=== PATIENT | male | born 1995 | race Caucasian/White ===

== ENCOUNTER 2016-09-25 10:22 | Emergency (ER) | payer SELFPAY ==
[2016-09-25] MEDS ORDERED: ACETAMINOPHEN 325 MG TABLET PO ONE (10:41)
--- NOTE | 2016-09-25 10:41 | ER Document Report ---
ED Medical Screen (RME) - General Stated Complaint: ABDOMINAL PAIN Notes: abdominal pain cramping pain. Last bm was this AM and was normal onset: last night left side along rib cage. denies recent surgery, travel admits to nausea with pain at its worst h/o kidney stones I have greeted and performed a rapid initial assessment of this patient. A comprehensive ED assessment and evaluation of the patient, analysis of test results and completion of the medical decision making process will be conducted by additional ED providers. TRAVEL OUTSIDE OF THE [place] IN LAST 30 DAYS: No - Related Data Allergies/Adverse Reactions: anesthesia Allergy (Uncoded 03/10/15 11:13)
[2016-09-25 11:18] LABS: ABSOLUTE BASOPHILS # (AUTO) 0.1 10^3/uL (0.0-0.2); ABSOLUTE EOSINOPHILS # (AUTO) 0.1 10^3/uL (0.0-0.6); ABSOLUTE LYMPHOCYTES (AUTO) 1.7 10^3/uL (0.5-4.7); ABSOLUTE MONOCYTES (AUTO) 1.3 10^3/uL (0.1-1.4); ABSOLUTE NEUT (AUTO) 10.7 10^3/uL (1.7-8.2); BASOPHILS % (AUTO) 0.4 % (0-2); EOSINOPHILS % (AUTO) 0.8 % (0-6); HEMATOCRIT 46.5 % (37.9-51.0); HGB HCT DIFFERENCE 1.5; MEAN CORPUSCULAR HEMOGLOBIN 30.2 pg (27.0-33.4); MEAN CORPUSCULAR HGB CONC 34.4 g/dL (32.0-36.0); MEAN CORPUSCULAR VOLUME 88 fl (80-97); MONOCYTES % (AUTO) 9.4 % (3-13); RED BLOOD COUNT 5.29 10^6/uL (4.35-5.55); RED CELL DISTRIBUTION WIDTH 12.9 % (11.5-14.0); SEGMENTED NEUTROPHILS % (AUTO) 77.4 % (42-78); WHITE BLOOD COUNT 13.9 10^3/uL (4.0-10.5)
--- NOTE | 2016-09-25 11:23 | ER Document Report ---
ED General - General Chief Complaint: Abdominal Pain Stated Complaint: ABDOMINAL PAIN Time seen by provider: 11:10 Mode of Arrival: Ambulatory Information source: Patient Notes: 21-year-old male with subjective fever and chills beginning yesterday evening. He reports occasional nonproductive cough and nausea but denies vomiting or diarrhea. She is body aches involving arms legs chest abdomen and back and denies any local or discrete discomfort in any one spot. He reports some sore throat this morning but denies earache headache or blurry vision this morning. Patient in case she is concerning might have the flu or pneumonia. 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 Physical Exam: General: Alert, appears well. HEENT: Normocephalic. Atraumatic. PERRLA. Extraocular movements intact. Tympanic membranes canals clear Oropharynx clear. Neck: Supple. Non-tender. JVD no nuchal rigidity Respiratory: No respiratory distress. Clear and equal breath sounds bilaterally. No discrete tenderness to palpation Cardiovascular: Regular rate and rhythm. Abdominal: Normal Inspection. Soft, non-tender. No distension. Normal Bowel Sounds. Back: Non-tender. No deformity or step off. Extremities: Moves all four extremities. Upper extremities: Normal inspection. Non-tender. Normal color. Normal ROM. Normal temperature. Lower extremities: Normal inspection. Non-tender. No edema. Normal color. Normal ROM. Normal temperature. Neurological: Speech clear mentation normal lites without difficulty Psychological: Normal affect. Normal Mood. Skin: Warm. Dry. Normal color. TRAVEL OUTSIDE OF THE [place] IN LAST 30 DAYS: No - Related Data Allergies/Adverse Reactions: anesthesia Allergy (Uncoded 09/25/16 10:38) Past Medical History - Social History Smoking Status: Current Every Day Smoker Frequency of alcohol use: Rare Drug Abuse: Marijuana Family History: CAD Patient has suicidal ideation: No Patient has homicidal ideation: No Renal/ Medical History: Reports: Hx Kidney Stones. Denies: Hx Peritoneal Dialysis Past Surgical History: Reports: Hx Genitourinary Surgery - REVISED CIRCUMCISION Review of Systems - Review of Systems Constitutional: See HPI EENT: See HPI Cardiovascular: See HPI Respiratory: See HPI Gastrointestinal: See HPI Genitourinary: denies: Burning, Dysuria, Hematuria Musculoskeletal: Back pain Hematologic/Lymphatic: denies: Swollen glands Neurological/Psychological: denies: Weakness, Numbness Physical Exam - Vital signs Vitals: Temp Pulse Resp BP Pulse Ox 99.0 F 105 H 20 134/85 H 97 09/25/16 10:39 09/25/16 10:39 09/25/16 10:39 09/25/16 10:39 09/25/16 10:39 Course - Re-evaluation Re-evalutation: 09/25/16 12:03 Patient is a presentation consistent with viral syndrome. He'll be given a prescription for Phenergan as needed for nausea and instructed to take Tylenol or Motrin for other symptoms. - Vital Signs Vital signs: Temp Pulse Resp BP Pulse Ox 99.0 F 105 H 20 134/85 H 97 09/25/16 10:39 09/25/16 10:39 09/25/16 10:39 09/25/16 10:39 09/25/16 10:39 - Laboratory Result Diagrams: 09/25/16 10:50 09/25/16 10:50 Laboratory results interpreted by me: 09/25/16 09/25/16 10:50 10:50 WBC 13.9 H Lymphocytes % 12.0 L Absolute Neutrophils 10.7 H ALT 20 L 09/25/16 12:03 Influenza nasal washing negative - Diagnostic Test Radiology reviewed: Reports reviewed Discharge - Discharge Clinical Impression: Viral syndrome Condition: Stable Disposition: HOME, SELF-CARE Instructions: Viral Syndrome ([facility]) Prescriptions: Promethazine HCl [Phenergan 25 mg Tablet] 1 tab PO Q6H PRN #10 tablet PRN Reason: Forms: Return to Work Referrals: MARCELINA ACUÑA MD [ACTIVE STAFF] - Follow up as needed
[2016-09-25 11:36] LABS: ALANINE AMINOTRANSFERASE 20 U/L (21-72); ALKALINE PHOSPHATASE 77 U/L (38-126); ANION GAP 13 (5-19); ASPARTATE AMINO TRANSFERASE 21 U/L (17-59); BILIRUBIN,TOTAL 1.1 mg/dL (0.2-1.3); BLOOD UREA NITROGEN 14 mg/dL (7-20); CALCIUM 10.1 mg/dL (8.4-10.2); CARBON DIOXIDE 26 mmol/L (22-30); CHLORIDE 101 mmol/L (98-107); CREATININE RESULT 0.85 mg/dL (0.52-1.25); GLUCOSE 94 mg/dL (75-110); LIPASE 39.5 U/L (23-300); POTASSIUM 4.4 mmol/L (3.6-5.0); SODIUM 139.8 mmol/L (137-145); TOTAL PROTEIN 7.6 g/dL (6.3-8.2)
[2016-09-25] MEDS ORDERED: IBUPROFEN 400 MG TABLET PO ONE (12:02)
[2016-09-25 12:25] VITALS: BP 121/76
== END 2016-09-25 12:24 | disposition home or self-care (01) ==
LOC: ER 10:22
DX: R10.9 Unspecified abdominal pain (principal); B34.9 Viral infection, unspecified; R11.0 Nausea; R05 Cough; F17.200 Nicotine dependence, unspecified, uncomplicated; M25.562 Pain in left knee; M25.561 Pain in right knee; Z87.442 Personal history of urinary calculi
CPT/HCPCS: 99284; 36415; 83690; 85025; 80053; 87804; 71101; J3490

== ENCOUNTER 2016-10-07 13:28 | Emergency (ER) | payer SELFPAY ==
--- NOTE | 2016-10-07 14:06 | ER Document Report ---
ED Medical Screen (RME) - General Stated Complaint: RIGHT SIDE BODY AND FACE NUMBNESS Mode of Arrival: Ambulatory Information source: Patient Notes: Patient reports three-day history of right upper muscle spasm that causes numbness to right upper extremity and right hip area. Patient states these episodes have been intermittent but are increasing in frequency. Patient denies any injury. Patient is right-hand dominant. hx: None I have greeted and performed a rapid initial assessment of this patient. A comprehensive ED assessment and evaluation of the patient, analysis of test results and completion of the medical decision making process will be conducted by additional ED providers. TRAVEL OUTSIDE OF THE [place] IN LAST 30 DAYS: No - Related Data Allergies/Adverse Reactions: anesthesia Allergy (Uncoded 10/07/16 14:03) Past Medical History Renal/ Medical History: Reports: Hx Kidney Stones. Denies: Hx Peritoneal Dialysis Past Surgical History: Reports: Hx Genitourinary Surgery - REVISED CIRCUMCISION Physical Exam - Vital signs Vitals: Temp Pulse Resp BP Pulse Ox 97.7 F 85 18 119/76 98 10/07/16 13:35 10/07/16 13:35 10/07/16 13:35 10/07/16 13:35 10/07/16 13:35 - Neurological Cognition: Normal Alpine Coma Scale Eye Opening: Spontaneous Lucinda Coma Scale Verbal: Oriented [place] Coma Scale Motor: Abnormal Flexion Lucinda Coma Scale Total: 12 Course - Vital Signs Vital signs: Temp Pulse Resp BP Pulse Ox 97.7 F 85 18 119/76 98 10/07/16 13:35 10/07/16 13:35 10/07/16 13:35 10/07/16 13:35 10/07/16 13:35
[2016-10-07 14:49] LABS: ALANINE AMINOTRANSFERASE 19 U/L (21-72); ALBUMIN 3.9 g/dL (3.5-5.0); ALKALINE PHOSPHATASE 64 U/L (38-126); ANION GAP 8 (5-19); ASPARTATE AMINO TRANSFERASE 14 U/L (17-59); BILIRUBIN,TOTAL 0.4 mg/dL (0.2-1.3); BLOOD UREA NITROGEN 17 mg/dL (7-20); CALCIUM 9.8 mg/dL (8.4-10.2); CARBON DIOXIDE 28 mmol/L (22-30); CHLORIDE 103 mmol/L (98-107); CREATININE RESULT 0.88 mg/dL (0.52-1.25); GLUCOSE 75 mg/dL (75-110); POTASSIUM 4.6 mmol/L (3.6-5.0); SODIUM 139.2 mmol/L (137-145); TOTAL PROTEIN 6.3 g/dL (6.3-8.2)
[2016-10-07 15:02] LABS: ABSOLUTE BASOPHILS # (AUTO) 0.1 10^3/uL (0.0-0.2); ABSOLUTE EOSINOPHILS # (AUTO) 0.4 10^3/uL (0.0-0.6); ABSOLUTE LYMPHOCYTES (AUTO) 2.5 10^3/uL (0.5-4.7); ABSOLUTE MONOCYTES (AUTO) 1.3 10^3/uL (0.1-1.4); ABSOLUTE NEUT (AUTO) 8.9 10^3/uL (1.7-8.2); BASOPHILS % (AUTO) 0.6 % (0-2); HEMATOCRIT 40.9 % (37.9-51.0); HEMOGLOBIN 14.4 g/dL (13.5-17.0); HGB HCT DIFFERENCE 2.3; LYMPHOCYTES % (AUTO) 19.1 % (13-45); MEAN CORPUSCULAR HEMOGLOBIN 30.7 pg (27.0-33.4); MEAN CORPUSCULAR HGB CONC 35.2 g/dL (32.0-36.0); MEAN CORPUSCULAR VOLUME 87 fl (80-97); MONOCYTES % (AUTO) 9.7 % (3-13); RED BLOOD COUNT 4.69 10^6/uL (4.35-5.55); RED CELL DISTRIBUTION WIDTH 12.7 % (11.5-14.0); SEGMENTED NEUTROPHILS % (AUTO) 67.6 % (42-78); WHITE BLOOD COUNT 13.2 10^3/uL (4.0-10.5)
--- NOTE | 2016-10-07 19:27 | ER Document Report ---
ED General - General Chief Complaint: Numbness of Arm Stated Complaint: RIGHT SIDE BODY AND FACE NUMBNESS Mode of Arrival: Ambulatory Notes: Patient is a 21-year-old male without past medical history who presents with 2 weeks of intermittent spasming of his right upper extremity. States that intermittently over the last 2 weeks of having anywhere from 5 minutes to several hours of severe spasming with associated numbness and tingling in his right upper extremity. Describes the pain as a severe, constant, throbbing pain tenderness present. States that the symptoms come on spontaneously and resolve spontaneously. He denies any history of similar symptoms in the past prior to the last several weeks. He has not seen his primary care doctor regarding today's concerns. At the time my assessment he denies any complaints and states that the episode he is having earlier today has now resolved. No family history of neurodegenerative disorders or demyelinating conditions. Denies any drug or alcohol use. Denies any medication use. TRAVEL OUTSIDE OF THE [place] IN LAST 30 DAYS: No - Related Data Allergies/Adverse Reactions: anesthesia Allergy (Uncoded 10/07/16 14:03) Past Medical History - General Information source: Patient - Social History Smoking Status: Current Every Day Smoker Chew tobacco use (# tins/day): Yes Frequency of alcohol use: None Drug Abuse: None Lives with: Family Family History: CAD Patient has suicidal ideation: No Patient has homicidal ideation: No Renal/ Medical History: Reports: Hx Kidney Stones. Denies: Hx Peritoneal Dialysis Past Surgical History: Reports: Hx Genitourinary Surgery - REVISED CIRCUMCISION Review of Systems - Review of Systems Notes: Constitutional: Negative for fever. HENT: Negative for sore throat. Eyes: Negative for visual changes. Cardiovascular: Negative for chest pain. Respiratory: Negative for shortness of breath. Gastrointestinal: Negative for abdominal pain, vomiting or diarrhea. Genitourinary: Negative for dysuria. Musculoskeletal: Positive for intermittent right upper extremity pain Skin: Negative for rash. Neurological: Negative for headaches, weakness or numbness. 10 point ROS negative except as marked above and in HPI. Physical Exam - Vital signs Vitals: Temp Pulse Resp BP Pulse Ox 97.7 F 85 18 119/76 98 10/07/16 13:35 10/07/16 13:35 10/07/16 13:35 10/07/16 13:35 10/07/16 13:35 Interpretation: Normal Notes: PHYSICAL EXAMINATION: GENERAL: Well-appearing, well-nourished and in no acute distress. HEAD: Atraumatic, normocephalic. EYES: Pupils equal round and reactive to light, extraocular movements intact, sclera anicteric, conjunctiva are normal. ENT: nares patent, oropharynx clear without exudates. Moist mucous membranes. NECK: Normal range of motion, supple without lymphadenopathy LUNGS: Breath sounds clear to auscultation bilaterally and equal. No wheezes rales or rhonchi. HEART: Regular rate and rhythm without murmurs ABDOMEN: Soft, nontender, normoactive bowel sounds. No guarding, no rebound. No masses appreciated. EXTREMITIES: Normal range of motion, no pitting or edema. No cyanosis. NEUROLOGICAL: Face symmetric. Tongue protrudes midline. Extraocular motions intact. Pupils are 2 mm and equally reactive. Normal speech, normal gait. 5 out of 5 strength in both the distal and proximal upper and lower extremities bilaterally. Sensation is grossly intact throughout. Finger to nose testing normal. Pronator drift normal. PSYCH: Normal mood, normal affect. SKIN: Warm, Dry, normal turgor, no rashes or lesions noted. Course - Re-evaluation Re-evalutation: 10/07/16 19:23 Patient presents with intermittent right upper extremity spasms with associated loss of strength and sensation that then spontaneously resolves. Notes that he has had intermittent blurring of his vision over the last 3 weeks. On exam at this time he has no focal neurologic deficits. A stroke screen is negative. He does not have any history of trauma, neck manipulation, or direct injury to the neck to suggest a cervical artery dissection. And again his neurologic exam is normal making this diagnosis unlikely. Likewise a do not suspect an acute TIA or CVA given that patient has recurrence of these episodes almost daily and they do last nor between 5 minutes and several hours. Patient does not have any pain with applying a downward force to an extended neck toward the right. Differential at this time includes muscle spasms particularly given that patient states that his entire arm tenses as well as the shoulder when these episodes occur. Cervical 6-7 root compression could also give pain radiating into the shoulder and arm. I've also discussed the patient the possibility of new onset multiple sclerosis given his intermittent symptoms as well as his apparent intermittent blurring of vision. However, at this time based on his normal neurologic exam I do not believe an emergent MRI is indicated. I have asked and follow-up with neurology at his earliest ability for consideration of further diagnostic testing and imaging.At this time will discharge with return precautions and follow-up recommendations. Verbal discharge instructions given a the bedside and opportunity for questions given. Medication warnings reviewed. Patient is in agreement with this plan and has verbalized understanding of return precautions and the need for primary care follow-up in the next 24-72 hours. - Vital Signs Vital signs: Temp Pulse Resp BP Pulse Ox 98.6 F 66 16 129/83 H 100 10/07/16 19:46 10/07/16 19:46 10/07/16 19:46 10/07/16 19:46 10/07/16 19:46 - Laboratory Result Diagrams: 10/07/16 14:20 10/07/16 14:20 Laboratory results interpreted by me: 10/07/16 10/07/16 14:20 14:20 WBC 13.2 H Absolute Neutrophils 8.9 H AST 14 L ALT 19 L Discharge - Discharge Clinical Impression: Right upper limb pain Condition: Good Disposition: HOME, SELF-CARE Additional Instructions: Please follow-up with the neurologist in the next several weeks particularly if your symptoms do not completely resolve. Return to the emergency room immediately if you have of these episodes that does not resolve spontaneously, have more frequent episodes, pass out, or have any other symptoms that are concerning to you. Prescriptions: Cyclobenzaprine HCl [Flexeril 10 mg Tablet] 10 mg PO TIDP PRN #15 tab PRN Reason: Forms: Return to Work Referrals: GLORIA EL MD [ACTIVE STAFF] - Follow up as needed
[2016-10-07 19:48] VITALS: BP 129/83
== END 2016-10-07 19:48 | disposition home or self-care (01) ==
LOC: ER 13:28
DX: M79.601 Pain in right arm (principal); R20.0 Anesthesia of skin; R20.2 Paresthesia of skin; R25.2 Cramp and spasm; R53.1 Weakness; H53.8 Other visual disturbances; F17.200 Nicotine dependence, unspecified, uncomplicated; Z88.4 Allergy status to anesthetic agent
CPT/HCPCS: 36415; 80053; 85025; 99284

== ENCOUNTER 2019-02-16 06:41 | Emergency (ER) | payer SELFPAY ==
[2019-02-16 07:14] VITALS: BP 150/101
--- NOTE | 2019-02-16 07:29 | ER Document Report ---
ED Neuro Symptoms/Deficit - General Chief Complaint: Arm Pain Stated Complaint: EAR PAIN Time Seen by Provider: 02/16/19 06:51 TRAVEL OUTSIDE OF THE [place] IN LAST 30 DAYS: No - HPI Notes: Patient is a 23 yo male that presents to the emergency department for chief complaint of left arm numbness. Patient reports left arm numbness that started yesterday around 2 PM. He was sitting at rest and doing no extraneous activity. He did not work yesterday. Patient states that he has a difficult time feeling his entire hand through just proximal to his elbow. He states it does not feel like the watch she is wearing on his left side is on although he can see it. He denies significant change in the hand sensation but states the numbness occasionally does radiate more proximally to his shoulder. Currently he is not having numbness in the shoulder. He denies speech difficulty, confusion, weakness. Patient does report history of TIA 2 years ago and states he was admitted at [facility]. He believes he was started on blood pressure medication which he never took and told to stop smoking which he did not do. Patient has not followed with any primary care or neurology since that admission. He is also complaining of 3 days of sinus congestion and right ear fullness. Past Medical History: TIA, HTN Past Surgical History: Negative Social History: Daily tobacco. Occasional alcohol. Daily marijuana. Family History: Reviewed and noncontributory for presenting illness Allergies: Reviewed, see documented allergy list. REVIEW OF SYSTEMS: CONSTITUTIONAL : No fever No chills No diaphoresis No recent illness EENT: No vision changes No congestion No sore throat CARDIOVASCULAR: No chest pain No palpitations RESPIRATORY: No shortness of breath No cough No difficulty breathing GASTROINTESTINAL: No abdominal pain No nausea No vomiting No diarrhea GENITOURINARY: No dysuria No hematuria No difficulty urinating MUSCULOSKELETAL: No back pain No leg pain No arm pain SKIN: No rashes No lesions LYMPHATIC: No swollen, enlarged glands. NEUROLOGICAL: No lightheadedness No headache No weakness paresthesias PSYCHIATRIC: No anxiety No depression PHYSICAL EXAMINATION: Vital signs reviewed, nursing noted reviewed. GENERAL: Somnolent, well-nourished and in no acute distress. HEAD: Atraumatic, normocephalic. EYES: Eyes appear normal, extraocular movements intact, sclera anicteric, conjunctiva are injected ENT: nares patent, oropharynx clear without exudates. Moist mucous membranes. NECK: Normal range of motion, supple without lymphadenopathy LUNGS: Breath sounds clear to auscultation bilaterally and equal. No wheezes rales or rhonchi. HEART: Regular rate and rhythm without murmurs ABDOMEN: Soft, nontender, normoactive bowel sounds. No rebound, guarding, or rigidity. No masses appreciated. EXTREMITIES: Nontender, good range of motion, no pitting or edema. NEUROLOGICAL: Subjective paresthesias to palpation of left hand and circumferentially to left forearm and elbow. Normal sensation just proximal to the left elbow. Moves all extremities spontaneously Motor intact on exam. NIH=1 (paresthesias) PSYCH: Normal mood, normal affect. SKIN: Warm, Dry, normal turgor, no rashes or lesions noted on exposed skin - Related Data Allergies/Adverse Reactions: anesthesia Allergy (Uncoded 10/07/16 14:03) Past Medical History - Social History Smoking Status: Current Every Day Smoker Family History: CAD Renal/ Medical History: Reports: Hx Kidney Stones. Denies: Hx Peritoneal Dialysis Past Surgical History: Reports: Hx Genitourinary Surgery - REVISED CIRCUMCISION Physical Exam - Vital signs Vitals: Temp Pulse Resp BP Pulse Ox 98.2 F 98 18 140/88 H 96 02/16/19 06:47 02/16/19 06:47 02/16/19 06:47 02/16/19 06:47 02/16/19 06:47 Course - Re-evaluation Re-evalutation: 02/16/19 07:54 Vitals reviewed. Nursing notes reviewed. Patient is reporting paresthesias to his left upper extremity. His paresthesias are located just proximal to the elbow moving distally. He has no focal motor deficits. He is awake and oriented. The onset of symptoms was yesterday and he is outside the window for TPA. His NIH is also low which excludes him from TPA criteria. Patient reports history of TIA 2 years ago and has uncontrolled hypertension and continues to smoke therefore stoke workup was initiated. I have asked for permission to obtain records from [facility] from his previous admission to review any neurology consultation and imaging. Patient has refused to permit me to obtain prior records. He states he just wants to see if something is going on today with his arm. I did explain that I was looking to see what his prior images looked like to compare and what the recommendations were at discharge however he has continued to refuse to sign consent to obtain records. Chart review in this computer shows visits for similar paresthesias that were not believed to be TIA or stroke. 02/16/19 09:05 Patient reevaluated. His left arm numbness is unchanged. CT brain shows no acute intracranial mass, bleeding or stroke. Patient has an unremarkable chest x-ray. His lab work is unremarkable as well. Patient has no acute electrolyte derangements. At this point given his risk factors and reported history of TIA with new stroke symptoms I did recommend admission to the hospital for MRI brain and further neurologic monitoring. Patient was ordered aspirin as well. Patient has declined admission and would like to leave AGAINST MEDICAL ADVICE. He has capacity to make medical decisions. He understands the risks of leaving AGAINST MEDICAL ADVICE. Patient will be provided out patient resources for neurology follow-up and primary care follow-up. He was told to stop smoking. He was told he needs to see a primary care doctor to get his blood pressure treated. He was told he can return at any point in time for further assessment. Patient did leave the emergency room AGAINST MEDICAL ADVICE. 02/16/19 09:06 Chest X-Ray 02/16/19 07:03 IMPRESSION: Clear lungs. Head CT 02/16/19 07:03 IMPRESSION: No acute intracranial findings. Laboratory 02/16/19 02/16/19 02/16/19 07:40 07:40 07:40 WBC 12.5 H RBC 5.12 Hgb 15.4 Hct 44.5 MCV 87 MCH 30.1 MCHC 34.7 RDW 12.9 Plt Count 277 Seg Neutrophils % 71.4 Lymphocytes % 14.5 Monocytes % 8.3 Eosinophils % 5.4 Basophils % 0.4 Absolute Neutrophils 8.9 H Absolute Lymphocytes 1.8 Absolute Monocytes 1.0 Absolute Eosinophils 0.7 H Absolute Basophils 0.0 PT 12.3 INR 0.92 APTT 32.6 Sodium 139.1 Potassium 5.0 Chloride 108 H Carbon Dioxide 24 Anion Gap 7 BUN 17 Creatinine 0.77 Est GFR ( Amer) > 60 Est GFR (Non-Af Amer) > 60 Glucose 100 Calcium 9.3 Total Bilirubin 0.6 Direct Bilirubin 0.3 Neonat Total Bilirubin Not Reportable Neonat Direct Bilirubin Not Reportable Neonat Indirect Bili Not Reportable AST 20 ALT 21 Alkaline Phosphatase 66 Troponin I Total Protein 6.6 Albumin 4.1 02/16/19 07:40 WBC RBC Hgb Hct MCV MCH MCHC RDW Plt Count Seg Neutrophils % Lymphocytes % Monocytes % Eosinophils % Basophils % Absolute Neutrophils Absolute Lymphocytes Absolute Monocytes Absolute Eosinophils Absolute Basophils PT INR APTT Sodium Potassium Chloride Carbon Dioxide Anion Gap BUN Creatinine Est GFR ( Amer) Est GFR (Non-Af Amer) Glucose Calcium Total Bilirubin Direct Bilirubin Neonat Total Bilirubin Neonat Direct Bilirubin Neonat Indirect Bili AST ALT Alkaline Phosphatase Troponin I < 0.012 Total Protein Albumin - Vital Signs Vital signs: Temp Pulse Resp BP Pulse Ox 98.2 F 98 18 140/88 H 96 02/16/19 06:47 02/16/19 06:47 02/16/19 06:47 02/16/19 06:47 02/16/19 06:47 - Laboratory Result Diagrams: 02/16/19 07:40 02/16/19 07:40 - EKG Interpretation by Me Additional EKG results interpreted by me: 02/16/19 07:54 Interpreted by myself [id number]: Normal sinus rhythm, rate 92, normal axis, no ectopy, no STEMI ED NIH Stroke Scale - NIH Stroke Scale *: 1. NIH scale should be completed with appropriate accompanying assessment tools. *: 2. The NIH should reflect what the patient is capable of doing and should not be coached by the clinician. 1a. Level of Consciousness: 0=Alert;keenly responsive -: 1=Drowsy -: 2=Obtunded -: 3=Coma/unresponsive or reflex to noxious stimuli. 1a. Responses: 0 1b. Orientation Questions: a. What month is it? -: b. How old are you? -: 0=Answers both questions correctly. -: 1=Answers one question correctly or patient is intubated or has orotracheal trauma. -: 2=Answers neither question correctly. 1b. Responses: 0 1c. Response to commands: a. Open and close eyes? -: b. Sole Scraper and release hand? -: Credit is given despite weakness. Demonstration of task is permitted. Substitute command if hands cannot be used. -: 0=Performs both tasks correctly -: 1=Performs one task correctly -: 2=Performs neither task correctly 1c. Responses: 0 2. Gaze: Establish eye contact and instruct patient to "Follow my finger" -: 0=Normal -: 1=Partial gaze palsy. Gaze is abnormal in one or both eyes, but where forced deviation or total gaze paresis is not present. -: 2=Forced deviation or total gaze paresis. 2. Responses: 0 3. Visual Driscoll: Sees fingers in all four quadrants. -: 0=No visual loss. -: 1=Partial hemianopsia. -: 2=Complete hemianopsia. -: 3=Bilateral hemianopsia (including Cortical blindness) 3. Responses: 0 4. Facial Movement: Instruct patient to: -: a. Show me your teeth -: b. Raise your eyebrows -: c. Close your eyes -: d. Smile -: 0=Normal symmetrical movement -: 1=Minor paralysis (flattened nasolabial fold, asymmetry on smiling). -: 2=Partial paralysis (total or near total paralysis of lower face). -: 3=Complete paralysis of upper and lower face 4. Responses: 0 5. Motor functions (left arm): Alternate sides and extend each arm with palms down (90 degrees if sitting or 45 degrees for supine). -: 0=No drift;limb holds for full 10 seconds. -: 1=Drift; limb holds but drifts down before full 10 seconds, but does not hit bed. -: 2=Some effort against gravity; limb cannot get to or maintain position. -: 3=No effort against gravity; limb falls. -: 4=No movement. -: UN=Amputation, joint fusion, explain in comments. 5. Responses (left arm): 0 5. Motor Functions (right arm): Alternate sides and extend each arm with palms down (90 degrees if sitting or 45 degrees for supine). -: 0=No drift;limb holds for full 10 seconds. -: 1=Drift; limb holds but drifts down before full 10 seconds, but does not hit bed. -: 2=Some effort against gravity; limb cannot get to or maintain position. -: 3=No effort against gravity; limb falls. -: 4=No movement. -: UN=Amputation, joint fusion, explain in comments. 5. Responses (right arm): 0 6. Motor Functions (left leg): With patient lying supine, alternate sides and extend each leg (30 degrees always while supine). -: 0=No drift, leg holds position for full 5 seconds -: 1=Drift; leg falls before full 5 seconds but does not hit bed. -: 2=Some effort against gravity, leg falls to bed but some effort against gravity. -: 3=No effort against gravity, leg falls to bed immediately. -: 4=No movement. -: UN=Amputation, joint fusion; explain in comments. 6. Responses (left leg): 0 6. Motor Functions (right leg): With patient lying supine, alternate sides and extend each leg (30 degrees always while supine). -: 0=No drift, leg holds position for full 5 seconds -: 1=Drift; leg falls before full 5 seconds but does not hit bed. -: 2=Some effort against gravity, leg falls to bed but some effort against gravity. -: 3=No effort against gravity, leg falls to bed immediately. -: 4=No movement. -: UN=Amputation, joint fusion; explain in comments. 6. Responses (right leg): 0 7. Limb Ataxia: With eyes open instruct patient to: -: a. "Touch your finger to your nose". -: b. "Touch your heel to your gonzales" -: 0=Absent -: 1=Present in one limb. -: 2=Present in two limbs. -: UN=Amputation or joint fusion; explain in comments. 7. Responses: 0 8. Sensory: Test sensation using pinprick or noxious stimuli. Test as many body parts as possible. -: 0=Normal;no sensory loss -: 1=Mile to moderate sensory loss (patient feels pin prick but is less sharp on affected side). -: 2=Severe or total sensory loss. 8. Responses: 1 9. Best Language: Instruct patient to: -: a. "Describe what you see in this picture." -: b. "Name the items in this picture." -: c. "Read these sentences." -: 0=No aphasia, normal -: 1=Mild to moderate aphasia. -: 2=Severe aphasia -: 3=Mute, global aphasia, no usable speech or auditory comprehension. 9. Responses: 0 10. Articulation, Dysarthia: Instruct patient to: -: "Read these words" or "Repeat these words" -: 0=Normal -: 1=Mild to moderate; patient may slur some words but can be understood without difficulty. -: 2=Severe; patients speech so slurred as to be unintelligible in the absence of dysphasia. -: UN=Intubated or other physical barrier, explain in comments. 10. Responses: 0 11. Extinction or inattention: 0=No abnormality -: 1= Visual, tactile, auditory, spatial, or personal inattention or extinction to bilateral simulation in one or the sensory modalities. -: 2=Profound shelia-inattention or shelia-inattention to more than one modality; does not recognize own hand. 11. Responses: 0 Total Score: 1 Discharge - Discharge Clinical Impression: Left arm numbness Hypertension Qualifiers: Hypertension type: unspecified Qualified Code(s): I10 - Essential (primary) hypertension Eustachian tube dysfunction Qualifiers: Laterality: right Qualified Code(s): H69.81 - Other specified disorders of Eustachian tube, right ear Condition: Stable Disposition: AGAINST MEDICAL ADVICE Instructions: Numbness or Paresthesia ([facility]) Additional Instructions: You have had constant numbness in your left arm since yesterday. With your reported history of stroke this is concerning for a new stroke. It was advised at this point that you be admitted to the hospital for further work-up including MRI of your brain. By leaving AGAINST MEDICAL ADVICE you are risking loss of life limb and permanent disability. Without risk factor modification you may have another stroke which could be more debilitating. It is important that you stop smoking. It is important that you follow in the next few days with a primary care provider to begin blood pressure medication. If you develop any new or concerning symptoms please return to the emergency room. please also return to the emergency room at any point for further stroke work-up. Dr. El is a local neurologist, I recommend following with him for further outpatient management since you do not wish to be admitted to the hospital today. You have also been provided the [facility] in the [facility] for primary care follow-up of your blood pressure. Please contact 1 of them today to establish outpatient follow-up. Forms: Elevated Blood Pressure, Smoking Cessation Education Referrals: [facility] [Provider Group] - Follow up as needed [facility] [Provider Group] - Follow up as needed GLORIA EL MD [NO LOCAL MD] - Follow up as needed
--- NOTE | 2019-02-16 07:51 | RADIOLOGY REPORT (SQ) ---
CLINICAL HISTORY: left arm numbness COMPARISON: None. TECHNIQUE: XR CHEST 1 VIEW 02/16/2019 7:03 AM CDT FINDINGS: Cardiac silhouette is normal in size. Lungs are clear without consolidation, atelectasis, mass or edema. There is no pleural effusion. There is no pneumothorax. There are no acute osseous findings. IMPRESSION: Clear lungs.
[2019-02-16 07:54] LABS: ABSOLUTE EOSINOPHILS # (AUTO) 0.7 10^3/uL (0.0-0.6); ABSOLUTE LYMPHOCYTES (AUTO) 1.8 10^3/uL (0.5-4.7); ABSOLUTE NEUT (AUTO) 8.9 10^3/uL (1.7-8.2); BASOPHILS % (AUTO) 0.4 % (0-2); EOSINOPHILS % (AUTO) 5.4 % (0-6); HEMATOCRIT 44.5 % (37.9-51.0); HEMOGLOBIN 15.4 g/dL (13.5-17.0); LYMPHOCYTES % (AUTO) 14.5 % (13-45); MEAN CORPUSCULAR HEMOGLOBIN 30.1 pg (27.0-33.4); MEAN CORPUSCULAR HGB CONC 34.7 g/dL (32.0-36.0); MEAN CORPUSCULAR VOLUME 87 fl (80-97); MONOCYTES % (AUTO) 8.3 % (3-13); PLATELET COUNT 277 10^3/uL (150-450); RED BLOOD COUNT 5.12 10^6/uL (4.35-5.55); RED CELL DISTRIBUTION WIDTH 12.9 % (11.5-14.0); SEGMENTED NEUTROPHILS % (AUTO) 71.4 % (42-78); TOTAL CELLS COUNTED % (AUTO) 100 %; WHITE BLOOD COUNT 12.5 10^3/uL (4.0-10.5)
[2019-02-16 07:59] LABS: INTERNATIONAL RATION (INR) 0.92
--- NOTE | 2019-02-16 07:59 | RADIOLOGY REPORT (SQ) ---
CLINICAL HISTORY: left arm numbness COMPARISON: None. TECHNIQUE: CT HEAD WITHOUT IV CONTRAST on 02/16/2019 7:03 AM CDT This exam was performed according to our departmental dose-optimization program, which includes automated exposure control, adjustment of the mA and/or kV according to patient size and/or use of iterative reconstruction technique. FINDINGS: There is no acute hemorrhage, mass effect or midline shift. Dale-white differentiation is preserved. There is no hydrocephalus. There is no significant volume loss for age. The calvarium is intact. Orbits and globes are unremarkable. The maxillary sinuses are opacified. There is moderate thickening of the ethmoid air cells. Mastoid air cells are clear. IMPRESSION: No acute intracranial findings.
[2019-02-16 08:00] LABS: PARTIAL THROMBOPLASTIN TIME 32.6 SEC (23.5-35.8)
[2019-02-16 08:12] LABS: PROTHROMBIN TIME 12.3 SEC (11.4-15.4)
[2019-02-16 08:13] LABS: ALANINE AMINOTRANSFERASE 21 U/L (21-72); ALBUMIN 4.1 g/dL (3.5-5.0); ALKALINE PHOSPHATASE 66 U/L (38-126); ANION GAP 7 (5-19); ASPARTATE AMINO TRANSFERASE 20 U/L (17-59); BILIRUBIN,DIRECT 0.3 mg/dL (0.0-0.4); BILIRUBIN,TOTAL 0.6 mg/dL (0.2-1.3); BLOOD UREA NITROGEN 17 mg/dL (7-20); CALCIUM 9.3 mg/dL (8.4-10.2); CARBON DIOXIDE 24 mmol/L (22-30); CHLORIDE 108 mmol/L (98-107); GLUCOSE 100 mg/dL (75-110); SODIUM 139.1 mmol/L (137-145); TOTAL PROTEIN 6.6 g/dL (6.3-8.2)
[2019-02-16] MEDS ORDERED: ASPIRIN 325 MG TABLET PO ONE (08:55)
--- NOTE | 2019-02-16 17:59 | EKG REPORT ---
SEVERITY:- NORMAL ECG - SINUS RHYTHM : Confirmed by: Armando Miller 16-Feb-2019 17:57:57
== END 2019-02-16 09:22 | disposition left against medical advice (07) ==
LOC: ER 06:41
DX: H69.81 Other specified disorders of Eustachian tube, right ear (principal); I10 Essential (primary) hypertension; R20.2 Paresthesia of skin; M79.602 Pain in left arm; Z86.73 Personal history of transient ischemic attack (TIA), and cerebral infarction without residual deficits; F17.200 Nicotine dependence, unspecified, uncomplicated
CPT/HCPCS: 36415; 70450; 71045; 80053; 84484; 85025; 85610; 85730; 93005; 93010; 99284

== ENCOUNTER 2019-02-20 08:55 | Emergency (ER) | payer SELFPAY ==
[2019-02-20] MEDS ORDERED: KETOROLAC TROMETHAMINE INJ/PF 30 MG/1 ML SDV IV ONE (09:27)
[2019-02-20] MEDS ORDERED: MORPHINE SULFATE 10 MG/ML INJ IV ONE ×2 (09:27→11:15)
--- NOTE | 2019-02-20 09:38 | ER Document Report ---
HPI - HPI Patient complains to provider of: Low back pain Time Seen by Provider: 02/20/19 09:14 Onset: Yesterday Onset/Duration: Persistent Quality of pain: Achy Pain Level: 4 Context: Patient presents complaining of right lower back pain that started yesterday. Patient denies any injury. Patient does report having some difficulty with maintaining urinary stream. Patient denies any fever or hematuria. Patient does report a history of kidney stones. Patient also reports sinus congestion and facial sinus pain for the past month with productive cough. Patient denies any fever. Associated Symptoms: Productive cough, Sinus pain/drainage, Other - back pain. denies: Fever Exacerbated by: Denies Relieved by: Denies Similar symptoms previously: Yes Recently seen / treated by doctor: No - ROS ROS below otherwise negative: Yes Systems Reviewed and Negative: Yes All other systems reviewed and negative - CONSTITUTIONAL Constitutional: DENIES: Fever, Chills - EENT EENT: REPORTS: Nasal Drainage-Purulent, Congestion - CARDIOVASCULAR Cardiovascular: DENIES: Chest pain - RESPIRATORY Respiratory: REPORTS: Coughing. DENIES: Trouble Breathing - GASTROINTESTINAL Gastrointestinal: DENIES: Nausea, Patient vomiting - URINARY Urinary: DENIES: Dysuria, Urgency, Frequency - MUSCULOSKELETAL Musculoskeletal: REPORTS: Back Pain. DENIES: Extremity pain - DERM Skin Color: Normal Past Medical History - General Information source: Patient - Social History Smoking Status: Current Every Day Smoker Chew tobacco use (# tins/day): No Smoking Education Provided: Yes Frequency of alcohol use: Occasional Drug Abuse: None Occupation: [employer] work Lives with: Family Family History: CAD Patient has suicidal ideation: No Patient has homicidal ideation: No Renal/ Medical History: Reports: Hx Kidney Stones. Denies: Hx Peritoneal Dialysis Past Surgical History: Reports: Hx Genitourinary Surgery - REVISED CIRCUMCISION Vertical Provider Document - CONSTITUTIONAL Agree With Documented VS: Yes Exam Limitations: No Limitations General Appearance: WD/WN, No Apparent Distress - INFECTION CONTROL TRAVEL OUTSIDE OF THE [place] IN LAST 30 DAYS: No - HEENT HEENT: Atraumatic, Normocephalic. negative: Pharyngeal Tenderness, Pharyngeal Erythema, Tympanic Membrane Red, Tympanic Membrane Bulging Notes: Swollen nasal mucosa, maxillary sinus tenderness, no facial swelling - NECK Neck: Normal Inspection, Supple. negative: Lymphadenopathy-Left, Lymphadenopathy-Right - RESPIRATORY Respiratory: Breath Sounds Normal, No Respiratory Distress - CARDIOVASCULAR Cardiovascular: Regular Rate, Regular Rhythm, No Murmur - BACK Back: CVA Tenderness-Right Notes: No spinal midline tenderness step-off or deformity - MUSCULOSKELETAL/EXTREMETIES Musculoskeletal/Extremeties: ASHLEY HINSON - NEURO Level of Consciousness: Awake, Alert, Appropriate Motor/Sensory: No Motor Deficit Notes: No saddle anesthesia, normal gait - DERM Integumentary: Warm, Dry, No Rash Course - Re-evaluation Re-evalutation: 02/20/19 11:15 Patient complaining of return of right lower back pain at this time. Patient with incidental elevated bilirubin noted in urine. Abdomen is soft nontender. Patient complains of an increase in his back pain at this time. Additional medication and imaging ordered. 02/20/19 12:39 CT scan reviewed, no concern for any obstructive uropathy. Will treat as musculoskeletal low back pain at this time. Patient advised of laboratory results and encouraged to follow-up with primary care provider for recheck. - Vital Signs Vital signs: Temp Pulse Resp BP Pulse Ox 97.6 F 96 18 126/80 H 96 02/20/19 09:11 02/20/19 09:11 02/20/19 09:11 02/20/19 09:11 02/20/19 09:11 - Laboratory Result Diagrams: 02/20/19 09:40 02/20/19 10:47 Laboratory results interpreted by me: 02/20/19 12:39 Labs- Entire Visit 02/20/19 02/20/19 02/20/19 09:35 09:40 09:40 WBC 14.7 H RBC 5.32 Hgb 16.1 Hct 46.2 MCV 87 MCH 30.3 MCHC 34.9 RDW 13.0 Plt Count 366 Seg Neutrophils % 68.2 Lymphocytes % 21.2 Monocytes % 6.8 Eosinophils % 2.9 Basophils % 0.9 Absolute Neutrophils 10.0 H Absolute Lymphocytes 3.1 Absolute Monocytes 1.0 Absolute Eosinophils 0.4 Absolute Basophils 0.1 Sodium Cancelled Potassium Cancelled Chloride Cancelled Carbon Dioxide Cancelled Anion Gap Cancelled BUN Cancelled Creatinine Cancelled Est GFR ( Amer) Cancelled Est GFR (Non-Af Amer) Cancelled Glucose Cancelled Calcium Cancelled Total Bilirubin Direct Bilirubin Neonat Total Bilirubin Neonat Direct Bilirubin Neonat Indirect Bili AST ALT Alkaline Phosphatase Creatine Kinase Total Protein Albumin Urine Color YELLOW Urine Appearance CLEAR Urine pH 6.0 Ur Specific [place] 1.029 Urine Protein 30 H Urine Glucose (UA) NEGATIVE Urine Ketones NEGATIVE Urine Blood NEGATIVE Urine Nitrite NEGATIVE Urine Bilirubin SMALL H Urine Urobilinogen 8.0 H Ur Leukocyte Esterase NEGATIVE Urine WBC (Auto) 0 Urine RBC (Auto) 1 Squamous Epi Cells Auto <1 Urine Mucus (Auto) MOD Urine Ascorbic Acid NEGATIVE 02/20/19 02/20/19 10:47 10:47 WBC RBC Hgb Hct MCV MCH MCHC RDW Plt Count Seg Neutrophils % Lymphocytes % Monocytes % Eosinophils % Basophils % Absolute Neutrophils Absolute Lymphocytes Absolute Monocytes Absolute Eosinophils Absolute Basophils Sodium 140.0 Potassium 4.8 Chloride 106 Carbon Dioxide 25 Anion Gap 9 BUN 20 Creatinine 0.85 Est GFR ( Amer) > 60 Est GFR (Non-Af Amer) > 60 Glucose 94 Calcium 9.9 Total Bilirubin 0.5 Direct Bilirubin 0.3 Neonat Total Bilirubin Not Reportable Neonat Direct Bilirubin Not Reportable Neonat Indirect Bili Not Reportable AST 23 ALT 20 L Alkaline Phosphatase 77 Creatine Kinase 218 H Total Protein 7.1 Albumin 4.5 Urine Color Urine Appearance Urine pH Ur Specific [place] Urine Protein Urine Glucose (UA) Urine Ketones Urine Blood Urine Nitrite Urine Bilirubin Urine Urobilinogen Ur Leukocyte Esterase Urine WBC (Auto) Urine RBC (Auto) Squamous Epi Cells Auto Urine Mucus (Auto) Urine Ascorbic Acid - Diagnostic Test Radiology reviewed: Reports reviewed Discharge - Discharge Clinical Impression: Right flank pain Sinusitis Qualifiers: Sinusitis location: unspecified location Chronicity: acute Recurrence: non- recurrent Qualified Code(s): J01.90 - Acute sinusitis, unspecified Condition: Stable Disposition: HOME, SELF-CARE Instructions: Amoxicillin ([facility]), Ice Packs ([facility]), Low Back Pain ([facility]), Nasal Corticosteroid Inhaler ([facility]), Sinusitis ([facility]), Toradol Injection ([facility]) Additional Instructions: Return immediately for any new or worsening symptoms Followup with your primary care provider, call tomorrow to make a followup appointment Prescriptions: Amoxicillin 500 mg PO TID #30 tablet Cyclobenzaprine HCl [Flexeril 10 Mg Tablet] 10 mg PO TID #15 tablet Fluticasone Propionate [Flonase Nasal Per[place] 50 Mcg/Perley 16 gm] 2 spray NASL DAILY #1 bottle Naproxen [Naprosyn 250 Nmg Tablet] 1 tab PO BID #14 tablet Forms: Smoking Cessation Education, Return to Work Referrals: [facility] [Provider Group] - Follow up as needed [facility] [Provider Group] - Follow up as needed
[2019-02-20 10:02] LABS: ABSOLUTE BASOPHILS # (AUTO) 0.1 10^3/uL (0.0-0.2); ABSOLUTE EOSINOPHILS # (AUTO) 0.4 10^3/uL (0.0-0.6); ABSOLUTE LYMPHOCYTES (AUTO) 3.1 10^3/uL (0.5-4.7); BASOPHILS % (AUTO) 0.9 % (0-2); EOSINOPHILS % (AUTO) 2.9 % (0-6); HEMATOCRIT 46.2 % (37.9-51.0); HEMOGLOBIN 16.1 g/dL (13.5-17.0); LYMPHOCYTES % (AUTO) 21.2 % (13-45); MEAN CORPUSCULAR HEMOGLOBIN 30.3 pg (27.0-33.4); MEAN CORPUSCULAR HGB CONC 34.9 g/dL (32.0-36.0); MEAN CORPUSCULAR VOLUME 87 fl (80-97); MONOCYTES % (AUTO) 6.8 % (3-13); PLATELET COUNT 366 10^3/uL (150-450); RED BLOOD COUNT 5.32 10^6/uL (4.35-5.55); SEGMENTED NEUTROPHILS % (AUTO) 68.2 % (42-78); TOTAL CELLS COUNTED % (AUTO) 100 %; WHITE BLOOD COUNT 14.7 10^3/uL (4.0-10.5)
[2019-02-20 10:13] LABS: APPEARANCE,URINE CLEAR; COLOR,URINE YELLOW
[2019-02-20 10:14] LABS: BILIRUBIN,URINE SMALL (NEGATIVE); GLUCOSE, URINE NEGATIVE (NEGATIVE); KETONES,URINE NEGATIVE (NEGATIVE); LEUKOCYTE ESTERASE,URINE NEGATIVE (NEGATIVE); NITRITE,URINE NEGATIVE (NEGATIVE); PROTEIN,URINE 30 mg/dL (NEGATIVE); URINE SPECIFIC GRAVITY 1.029
[2019-02-20] MEDS ORDERED: NORMAL SALINE 1000 ML 1,000 ML IV ONE (10:36)
[2019-02-20 11:15] LABS: ALANINE AMINOTRANSFERASE 20 U/L (21-72); ALBUMIN 4.5 g/dL (3.5-5.0); ALKALINE PHOSPHATASE 77 U/L (38-126); ANION GAP 9 (5-19); ASPARTATE AMINO TRANSFERASE 23 U/L (17-59); BILIRUBIN,DIRECT 0.3 mg/dL (0.0-0.4); BILIRUBIN,TOTAL 0.5 mg/dL (0.2-1.3); BLOOD UREA NITROGEN 20 mg/dL (7-20); CALCIUM 9.9 mg/dL (8.4-10.2); CARBON DIOXIDE 25 mmol/L (22-30); CHLORIDE 106 mmol/L (98-107); GLUCOSE 94 mg/dL (75-110); POTASSIUM 4.8 mmol/L (3.6-5.0); TOTAL PROTEIN 7.1 g/dL (6.3-8.2)
[2019-02-20 11:31] LABS: CREATINE KINASE 218 U/L (55-170)
--- NOTE | 2019-02-20 12:30 | RADIOLOGY REPORT (SQ) ---
EXAM DESCRIPTION: CT ABD/PELVIS NO ORAL OR IV COMPLETED DATE/TIME: 02/20/2019 11:56 am REASON FOR STUDY: r flank pain COMPARISON: None. TECHNIQUE: CT scan of the abdomen and pelvis performed without intravenous or oral contrast. Images reviewed with lung, soft tissue, and bone windows. Reconstructed coronal and sagittal MPR images revi ewed. All images stored on PACS. All CT scanners at this facility use dose modulation, iterative reconstruction, and/or weight based d osing when appropriate to reduce radiation dose to as low as reasonably achievable (ALARA). [facility]: Dose Right [facility]: CareDose [facility]: Dose Right [facility]: Teradose 4D [facility]: Smart Sinimanes RADIATION DOSE: CT Rad equipment meets quality standard of care and radiation dose reduction techniq ues were employed. CTDIvol: 11.3 mGy. DLP: 574 mGy-cm.mGy. LIMITATIONS: None. FINDINGS: LOWER CHEST: No significant findings. No nodules or infiltrates. NON-CONTRASTED LIVER, SPLEEN, ADRENALS: Evaluation limited by lack of IV contrast. No identified sign ificant masses. PANCREAS: No masses. No peripancreatic inflammatory changes. GALLBLADDER: No identified stones by CT criteria. No inflammatory changes to suggest cholecystitis. RIGHT KIDNEY AND URETER: No suspicious masses. Assessment limited by lack of IV contrast. Tiny less than 2 mm right upper mid and lower pole intrarenal nonobstructive stones. No ureteral calculi. N o hydronephrosis or hydroureter. LEFT KIDNEY AND URETER: No suspicious masses. Assessment limited by lack of IV contrast. Tiny less than 2 mm left upper mid and lower pole intrarenal nonobstructive stones. No ureteral calculi. No hydronephrosis or hydroureter. AORTA AND RETROPERITONEUM: No aneurysm. No retroperitoneal masses or adenopathy. BOWEL AND PERITONEAL CAVITY: No obvious masses or inflammatory changes. No free fluid. APPENDIX: Normal. PELVIS, BLADDER, AND ABDOMINAL WALL:No abnormal masses. No free fluid. Bladder normal. BONES: No significant findings. OTHER: No other significant finding. IMPRESSION: Tiny bilateral intra renal nonobstructive calculi. No ureteral stones or bladder calcul i. No hydronephrosis or hydroureter. COMMENT: Quality ID # [id number]: Final reports with documentation of one or more dose reduction techniques (e.g., Automated exposure control, adjustment of the mA and/or kV according to patient size, use of iterative reconstruction technique) TECHNICAL DOCUMENTATION: JOB ID: [id number] [employer]- All Rights Reserved Reading location - IP/workstation name: [email or web address]
[2019-02-20 12:59] VITALS: BP 123/77
== END 2019-02-20 12:59 | disposition home or self-care (01) ==
LOC: ER 08:55
DX: J01.90 Acute sinusitis, unspecified (principal); M54.5 Low back pain; R10.9 Unspecified abdominal pain; R05 Cough; F17.200 Nicotine dependence, unspecified, uncomplicated; Z87.442 Personal history of urinary calculi
CPT/HCPCS: 96376; 99284; 96361; 96374; 96375; 36415; 82550; 85025; 80076; 80048; 81001; 74176; J1885; J2270; J7030

== ENCOUNTER 2019-05-12 09:43 | Emergency (ER) | payer SELFPAY ==
--- NOTE | 2019-05-12 12:45 | ER Document Report ---
ED General - General Chief Complaint: Abscess Stated Complaint: POSSIBLE ABSCESS Time Seen by Provider: 05/12/19 12:20 TRAVEL OUTSIDE OF THE [place] IN LAST 30 DAYS: No - HPI Notes: Patient is a 24-year-old male who presents emergency department for evaluation of a possible abscess in his left axilla. Is been there for 4 days. 2 days ago he tried to "pop it" with a needle, but only blood was extracted. Denies any fevers or chills. He has had some nausea but no vomiting. - Related Data Allergies/Adverse Reactions: anesthesia Allergy (Uncoded 02/20/19 08:56) Past Medical History - General Information source: Patient - Social History Smoking Status: Current Every Day Smoker Frequency of alcohol use: Rare Family History: CAD Patient has suicidal ideation: No Patient has homicidal ideation: No Renal/ Medical History: Reports: Hx Kidney Stones. Denies: Hx Peritoneal Dialysis Past Surgical History: Reports: Hx Genitourinary Surgery - REVISED CIRCUMCISION Review of Systems - Review of Systems Constitutional: No symptoms reported EENT: No symptoms reported Cardiovascular: No symptoms reported Respiratory: No symptoms reported Gastrointestinal: See HPI Genitourinary: No symptoms reported Musculoskeletal: No symptoms reported Skin: See HPI Neurological/Psychological: No symptoms reported Physical Exam - Vital signs Vitals: Temp Pulse Resp BP Pulse Ox 98.0 F 106 H 16 132/78 H 98 05/12/19 09:48 05/12/19 09:48 05/12/19 09:48 05/12/19 09:48 05/12/19 09:48 - Notes Notes: Vital signs reviewed, please refer to chart. Head is normocephalic, atraumatic. Pupils equal round, reactive to light. Neck is supple without meningismus. Heart is regular rate and rhythm. Lungs are clear to auscultation bilaterally. Abdomen is soft, nontender, normoactive bowel sounds throughout. Examination of the skin reveals a 2 cm fluctuant erythematous abscess in the left axilla without significant running induration. No palpable adenopathy. Course - Vital Signs Vital signs: Temp Pulse Resp BP Pulse Ox 98.0 F 106 H 16 132/78 H 98 05/12/19 09:48 05/12/19 09:48 05/12/19 09:48 05/12/19 09:48 05/12/19 09:48 Procedures - Incision and Drainage Left Arm Time completed: 13:40 Type: Simple Anesthetic type: 1% Lidocaine mL's of anesthetic: 2 Blade size: 11 I&D procedure: Betadine prep applied Incision Method: Incision made by scalpel Amount/type of drainage: 4 cc of purulent drainage Notes: 05/12/19 14:42 The area was prepped and draped in usual sterile fashion. It was anesthetized with 1% lidocaine. Using 11 blade, a 3 cm incision was placed into the middle of the fluctuant abscess. Proximally 4 cc of purulent material was obtained. The wound was thoroughly explored. It was irrigated with 60 cc of normal saline. Patient tolerated this well. Bulky dressing placed. Neurovascular intact following. Discharge - Discharge Clinical Impression: Abscess of left axilla Condition: Stable Disposition: HOME, SELF-CARE Instructions: Abscess ([facility]), Post Incision and Drainage, Trimethoprim-Sulfa ([facility]) Additional Instructions: Take antibiotic as prescribed. Alternate Naprosyn and Tylenol as discussed for pain control. Follow-up with primary care next week. Return to the emergency department with worsening or new concerning symptoms of any sort.
[2019-05-12 15:14] VITALS: BP 141/91
== END 2019-05-12 15:14 | disposition home or self-care (01) ==
LOC: ER 09:43
DX: L02.412 Cutaneous abscess of left axilla (principal); R11.0 Nausea; F17.200 Nicotine dependence, unspecified, uncomplicated; Z88.4 Allergy status to anesthetic agent
CPT/HCPCS: 99283

== ENCOUNTER 2020-02-18 09:31 | Emergency (ER) | payer SELFPAY ==
--- NOTE | 2020-02-18 10:30 | RADIOLOGY REPORT (SQ) ---
EXAM DESCRIPTION: CHEST SINGLE VIEW IMAGES COMPLETED DATE/TIME: 02/18/2020 10:07 am REASON FOR STUDY: SOB COMPARISON: AP chest 02/16/2019 EXAM PARAMETERS: NUMBER OF VIEWS: One view. TECHNIQUE: Single frontal radiographic view of the chest acquired. RADIATION DOSE: NA LIMITATIONS: None. FINDINGS: LUNGS AND PLEURA: No opacities, masses or pneumothorax. No pleural effusion. MEDIASTINUM AND HILAR STRUCTURES: No masses. Contour normal. HEART AND VASCULAR STRUCTURES: Heart normal in size. Normal vasculature. BONES: No acute findings. HARDWARE: None in the chest. OTHER: No other significant finding. IMPRESSION: NO ACUTE RADIOGRAPHIC FINDING IN THE CHEST. TECHNICAL DOCUMENTATION: JOB ID: [id number] 2010 [employer]- All Rights Reserved Reading location - IP/workstation name: [email or web address]
[2020-02-18 10:35] LABS: ABSOLUTE BASOPHILS # (AUTO) 0.1 10^3/uL (0.0-0.2); ABSOLUTE EOSINOPHILS # (AUTO) 0.4 10^3/uL (0.0-0.6); ABSOLUTE LYMPHOCYTES (AUTO) 1.6 10^3/uL (0.5-4.7); ABSOLUTE MONOCYTES (AUTO) 1.3 10^3/uL (0.1-1.4); ABSOLUTE NEUT (AUTO) 11.4 10^3/uL (1.7-8.2); BASOPHILS % (AUTO) 0.6 % (0-2); EOSINOPHILS % (AUTO) 2.5 % (0-6); HEMATOCRIT 44.9 % (37.9-51.0); HEMOGLOBIN 15.7 g/dL (13.5-17.0); LYMPHOCYTES % (AUTO) 10.9 % (13-45); MEAN CORPUSCULAR HEMOGLOBIN 30.4 pg (27.0-33.4); MEAN CORPUSCULAR HGB CONC 35.1 g/dL (32.0-36.0); MEAN CORPUSCULAR VOLUME 87 fl (80-97); MONOCYTES % (AUTO) 8.9 % (3-13); PLATELET COUNT 269 10^3/uL (150-450); RED BLOOD COUNT 5.18 10^6/uL (4.35-5.55); RED CELL DISTRIBUTION WIDTH 12.9 % (11.5-14.0); SEGMENTED NEUTROPHILS % (AUTO) 77.1 % (42-78); TOTAL CELLS COUNTED % (AUTO) 100 %; WHITE BLOOD COUNT 14.8 10^3/uL (4.0-10.5)
[2020-02-18 10:39] VITALS: BP 135/79
[2020-02-18 10:51] LABS: ALBUMIN 4.2 g/dL (3.5-5.0); ALKALINE PHOSPHATASE 66 U/L (38-126); ANION GAP 7 (5-19); ASPARTATE AMINO TRANSFERASE 19 U/L (17-59); BILIRUBIN,TOTAL 0.5 mg/dL (0.2-1.3); BLOOD UREA NITROGEN 15 mg/dL (7-20); CALCIUM 9.3 mg/dL (8.4-10.2); CARBON DIOXIDE 22 mmol/L (22-30); CHLORIDE 106 mmol/L (98-107); GLUCOSE 97 mg/dL (75-110); POTASSIUM 4.1 mmol/L (3.6-5.0); TOTAL PROTEIN 6.8 g/dL (6.3-8.2)
[2020-02-18 10:53] LABS: A TYPE INFLUENZA AG NEGATIVE (NEGATIVE); B INFLUENZA AG NEGATIVE (NEGATIVE)
[2020-02-18] MEDS ORDERED: NORMAL SALINE 1000 ML 1,000 ML IV ONE (11:10)
[2020-02-18] MEDS ORDERED: KETOROLAC TROMETHAMINE INJ/PF 30 MG/1 ML SDV IV ONE (11:13)
--- NOTE | 2020-02-18 11:14 | ER Document Report ---
ED General - General Chief Complaint: Flu Symptoms Stated Complaint: SHORTNESS OF BREATH Time Seen by Provider: 02/18/20 10:18 Notes: 24-year-old man presents to the emergency department with complaint of fatigue, tenderness, fever, body aches and pains associated cough and a feeling of shortness of breath. His symptoms began Thursday but have progressed to the point where he was unable to rest last night due to aching in his joints and coughing. TRAVEL OUTSIDE OF THE [place] IN LAST 30 DAYS: No - Related Data Allergies/Adverse Reactions: anesthesia Allergy (Uncoded 02/18/20 10:11) Past Medical History - Social History Smoking Status: Current Every Day Smoker Frequency of alcohol use: None Drug Abuse: Marijuana Family History: CAD Patient has homicidal ideation: No Renal/ Medical History: Reports: Hx Kidney Stones. Denies: Hx Peritoneal Dialysis Past Surgical History: Reports: Hx Genitourinary Surgery - REVISED CIRCUMCISION Review of Systems - Review of Systems Notes: Constitutional: + Fever, + fatigue. HENT: Negative for sore throat. Eyes: Negative for visual changes. Cardiovascular: Negative for chest pain. Respiratory: + Cough, + shortness of breath. Gastrointestinal: Negative for abdominal pain, vomiting or diarrhea. Genitourinary: Negative for dysuria. Musculoskeletal: + Myalgias Skin: Negative for rash. Neurological: Negative for headaches, weakness or numbness. 10 point ROS negative except as marked above and in HPI. Physical Exam - Vital signs Vitals: Temp Pulse Resp BP Pulse Ox 98.8 F 95 20 135/79 H 97 02/18/20 09:45 02/18/20 09:45 02/18/20 09:45 02/18/20 09:45 02/18/20 09:45 - Notes Notes: PHYSICAL EXAMINATION: Physical Exam: General: Well-nourished well-developed 84-year-old male in no acute distress HEENT: NC/AT, pupils equal round and reactive to light, MM moist,nares clear, oropharynx clear, airway patent Neck: supple, no adenopathy, no masses. Good range of motion Lungs: clear, no wheezing, no rales no rhonchi CVS: Regular rate and rhythm no murmur gallop or rub Abdomen: Soft, active, nontender, no masses, no hepatosplenomegaly Ext: No edema, clubbing or cyanosis. Neuro: Alert and responsive, moving all 4 extremities on command, cranial nerves intact, no focal findings Skin: Intact no open lesions, no rash Course - Re-evaluation Re-evalutation: 02/18/20 12:13 Patient presents with concern that he has been traveling for work and may have contracted coronavirus. He has had flulike symptoms, fever, aches and pains with cough he is also notes muscle aches and pains which occurred during the night last night. He was given IV fluids and a work-up to include chest x-ray, CBC, chemistry, strep, influenza, and if negative a coronavirus swab will be obtained. 02/18/20 12:14 Apparently the patient decided he needed to leave and signed out prior to receiving the results from me regarding his laboratory tests, the coronavirus swab was performed. 02/18/20 12:18 Patient was informed that he should quarantine himself while awaiting the results of the coronavirus test prior to him signing out. - Vital Signs Vital signs: Temp Pulse Resp BP Pulse Ox 98.8 F 95 20 135/79 H 97 02/18/20 09:45 02/18/20 09:45 02/18/20 09:45 02/18/20 09:45 02/18/20 09:45 - Laboratory Result Diagrams: 02/18/20 09:46 02/18/20 09:46 Laboratory results interpreted by me: 02/18/20 02/18/20 09:46 09:46 WBC 14.8 H Lymph % (Auto) 10.9 L Absolute Neuts (auto) 11.4 H Sodium 135.4 L Discharge - Discharge Clinical Impression: Suspected 2019 novel coronavirus infection, Myalgia Fatigue Qualifiers: Fatigue type: unspecified Qualified Code(s): R53.83 - Other fatigue Condition: Good Disposition: AGAINST MEDICAL ADVICE
== END 2020-02-18 12:00 | disposition left against medical advice (07) ==
LOC: ER 09:31
DX: M79.10 Myalgia, unspecified site (principal); R53.83 Other fatigue; R06.02 Shortness of breath; F17.200 Nicotine dependence, unspecified, uncomplicated; Z20.828 Contact with and (suspected) exposure to other viral communicable diseases
CPT/HCPCS: 99283; 96361; 96374; 36415; 87070; 87880; 85025; 87635; 80053; 87804; 71045; J1885; J7030; C9803